=== PATIENT | female | born 1985 | race Caucasian/White ===

== ENCOUNTER 2021-11-19 18:50 | Emergency (ER) | payer BC, SELFPAY ==
[2021-11-19 19:02] VITALS: BP 137/81; PULSE 111; RESP 20; TEMP 36.9; O2SAT 100; BMI 25.8
--- NOTE | 2021-11-19 19:41 | CRLHL7_ITS ---
For Patients: As a result of the Century Cures Act, medical imaging exams and procedure reports are released immediately into your electronic medical record. You may view this report before your referring provider. If you have questions, please contact your health care provider. Indication: Fall on outstretched hand Comparison: None available. Technique: AP, lateral, and oblique views left wrist were obtained. Findings: There is a mildly impacted fracture of the distal radius with intra-articular extension. No other displaced injuries are appreciated. The joint spaces are grossly preserved. There is moderate carpal soft tissues swelling and fat pad displacement. Impression: Mildly impacted fracture of the distal radius with moderate carpal soft tissue swelling. Dictated by Mac Quintero MD @ 11/19/2021 8:33:05 PM (Electronically Signed)
--- NOTE | 2021-11-19 21:07 | ED_ITS ---
HPI - General Adult General Date Seen: 11/19/21 Chief complaint: Extremity Pain/Injury, Upper Stated complaint: Left wrist injury Time Seen by Provider: 11/19/21 19:34 Source: patient History of Present Illness HPI narrative: Patient is a 36-year-old woman who is in town for a wedding, she was chasing a chicken, fell backward and landed on her left wrist. She has had pain in that area since then. She then went to the wedding, says she was not going to come in but she has a relative who was the surgeon who said that it was deformed and that she should be seen. She has some tingling in her hand, no true numbness, fingers feel kind of stiff but she is able to move them. No other injuries or complaints. Related Data Home Medications Medication Instructions Recorded Confirmed No Known Home Medications 11/19/21 11/19/21 Allergies Allergy/AdvReac Type Severity Reaction Status Date / Time acetaminophen [From Midol] Allergy Hives Verified 11/19/21 19:06 aspirin [From Pamprin Max] Allergy Hives Verified 11/19/21 19:06 caffeine [From Pamprin Max] Allergy Hives Verified 11/19/21 19:06 hydrocodone Allergy Hives Verified 11/19/21 19:06 pamabrom [From Midol] Allergy Hives Verified 11/19/21 19:06 [facility] Social History Smoking Status: Never smoker Do you use any of these nicotine containing products: None Second hand tobacco smoke exposure: No How often do you have a drink containing alcohol: 2-4 times a month How many standard drinks containing alcohol do you have on a typical day: 1 or 2 How often do you have six or more drinks on one occasion: Never AUDIT-C Alcohol total score: 2 Non-prescribed substance use: denies use Exam Narrative: Exam Narrative: Vital signs reviewed In general, alert, nontoxic woman. She looks comfortable, icing her left wrist. Head: Normocephalic, atraumatic. Neck: Nontender. Extremities: Examination of the left wrist shows no bruising, swelling or deformity. She has tenderness over the distal radius. No snuffbox tenderness. Pulses intact. Distal CMS normal. Moves her fingers without difficulty. Skin: Warm dry and intact. No raisins or lacerations over the distal radius. Const: Vital Signs, click to edit/add: Vital Signs - 24 hr 11/19/21 19:02 Temperature 98.4 F Pulse Rate [Right Pulse Oximeter] 111 H Respiratory Rate 20 Blood Pressure [Le ft Upper Arm] 137/81 Pulse Oximetry 100 Oxygen Delivery Me thod Room Air Documenting provider has reviewed patient's vital signs: yes Course Course Hospital Course: X-rays of the left wrist by my review show a nondisplaced fracture of the distal radius. Final radiology report is the same. I have placed her in a sandwich splint using Ortho Glass and to Adrian wraps. She tolerated this well without immediate complication. She lives out near [place], so she s[place] follow-up with an orthopedic clinic out there. She thinks she will be fine with ibuprofen or Tylenol. Ice as needed. Vital Signs Vital signs: Initial Vital Signs Temperature 98.4 F 11/19/21 19:02 Temperature Source Temporal Artery Scan 11/19/21 19:02 Pulse Rate 111 H 11/19/21 19:02 Respiratory Rate 20 11/19/21 19:02 Blood Pressure 137/81 11/19/21 19:02 Blood Pressure Mean 99 11/19/21 19:02 Blood Pressure Position Sitting 11/19/21 19:02 Pulse Oximetry 100 11/19/21 19:02 Oxygen Delivery Method 11/19/21 19:02 Vital Signs Temperature 98.4 F 11/19/21 19:02 Pulse Rate 111 H 11/19/21 19:02 Respiratory Rate 20 11/19/21 19:02 Blood Pressure 137/81 11/19/21 19:02 Pulse Oximetry 100 11/19/21 19:02 Oxygen Delivery Method 11/19/21 19:02 Temperature 98.4 F 11/19/21 19:02 Pulse Rate 111 H 11/19/21 19:02 Respiratory Rate 20 11/19/21 19:02 Blood Pressure 137/81 11/19/21 19:02 Pulse Oximetry 100 11/19/21 19:02 Oxygen Delivery Method 11/19/21 19:02 Discharge Plan Discharge Clinical Impression: Fracture of wrist Patient Disposition: Home, Self-Care Condition: Improved Instructions: Wrist Fracture in Adults (ED) Additional Instructions: Ibuprofen or Tylenol as needed. Follow up with [facility] or orthopedic clinic of your choice next week for repeat evaluation and likely casting. Prescriptions: No Action No Known Home Medications Follow Up/Referrals: Provider,Not a Local [Primary Care Provider] - Stand Alone Forms: [facility] Info Instructions
[2021-11-19 21:17] VITALS: BP 137/81; PULSE 92; RESP 12; TEMP 36.9
== END 2021-11-19 21:17 | disposition home or self-care (01) ==
PROVIDERS: Emergency Provider Emergency Medicine
DX: S52.502A Unspecified fracture of the lower end of left radius, initial encounter for closed fracture (principal); W01.0XXA Fall on same level from slipping, tripping and stumbling without subsequent striking against object, initial encounter
CPT/HCPCS: 29125; 73110; 99283